=== PATIENT | female | born 1960 | race Two or more races ===

== ENCOUNTER 2024-02-02 07:32 | Emergency (ER) | payer OTHER ==
[~2024-02-02] VITALS: Ht 162.6 cm; Wt 76.6 kg
[2024-02-02 07:36] VITALS: TEMP 98.3
[2024-02-02] MEDS ORDERED: LABETALOL HCL 5 MG/ML 20 ML VIAL IVP ONE (07:37)
[2024-02-02 07:58] LABS: BASOPHILS % (AUTO) 0.7 % (0.0-2.0); EOSINOPHILS % (AUTO) 1.9 % (1.0-6.0); HEMATOCRIT 47.5 % (36-46); HEMOGLOBIN 16.1 g/dL (12.0-16.0); LYMPHOCYTES # (AUTO) 2.2 K/uL (1.0-4.8); LYMPHOCYTES % (AUTO) 25.5 % (22.0-44.0); MEAN CORPUSCULAR HEMOGLOBIN 30.8 pg (26.0-34.0); MEAN CORPUSCULAR VOLUME 91 fL (80-100); MONOCYTES # (AUTO) 0.7 K/uL (0.1-1.0); MONOCYTES % (AUTO) 8.7 % (2.0-9.0); NEUTROPHILS # (AUTO) 5.4 K/uL (1.8-7.7); NEUTROPHILS % (AUTO) 63.2 % (40.0-70.0); PLATELET COUNT (AUTO) 274 K/uL (150-450); RED BLOOD CELL COUNT(AUTO) 5.24 MIL/uL (4.00-5.20); RED CELL DISTRIBUTION WIDTH 13.7 % (11.5-14.5); WHITE BLOOD COUNT (AUTO) 8.5 K/uL (4.5-11.0)
[2024-02-02 08:15] LABS: ANION GAP 11 mmol/L (8-16); CALCIUM, TOTAL 9.5 mg/dL (8.8-10.5); CARBON DIOXIDE 28 mmol/L (22-29); CHLORIDE 101 mmol/L (98-107); CREATININE 0.61 mg/dL (0.60-1.30); GLOMERULAR FILTR. RATE CALC > 60 mL/min (>60); GLUCOSE,RANDOM 136 mg/dL (70-110); POTASSIUM 3.3 mmol/L (3.5-5.1); SODIUM SERUM 140 mmol/L (136-145); UREA NITROGEN, BLOOD 18 mg/dL (7-18)
[2024-02-02 08:20] LABS: ALANINE AMINOTRANSFERASE 24 U/L (12-78); ALBUMIN 3.3 g/dL (3.4-5.0); ALKALINE PHOSPHATASE 88 U/L (46-116); ASPARTATE AMINOTRANSFERASE 19 U/L (15-37); BILIRUBIN,TOTAL 0.5 mg/dL (0.1-1.0); CHOL/HDL RATIO 3.3 (3.9-5.7); CHOLESTEROL 230 mg/dL (131-200); HDL CHOLESTEROL 70 mg/dL (40-60); LDL CHOL (CALC.) 143 mg/dL (0-130); TOTAL PROTEIN, SERUM 7.6 g/dL (6.4-8.2); TRIGLYCERIDES 86 mg/dL (15-150)
[2024-02-02 08:26] LABS: TROPONIN I-HIGH SENSITIVITY 12 ng/L (<51)
[2024-02-02] MEDS: LABETALOL HCL 5 MG/ML 20 ML VIAL IVP ONE (08:34)
[2024-02-02] MEDS: DEXAMETHASONE SOD PHOS 4 MG/ML 5 ML VIAL IVP ONE (08:35)
[2024-02-02 09:12] LABS: COVID AG,FIA SOURCE NASAL SWAB
[2024-02-02] MEDS: LevETIRAcetam 1,000 MG in DEXTROSE 5%-WATER 100 ML IV ONE (09:17)
[2024-02-02 09:49] LABS: SARS-COV2 (COVID) ANTIGEN,FIA Negative (Negative)
[2024-02-02 11:47] VITALS: BP 146/86; PULSE 89; RESP 18
== END 2024-02-02 11:53 | disposition short-term general hospital (02) ==
LOC: EDUNIT# 07:32 → EMS 07:33 → EDBD 07:33 → EMS 11:53
DX: R41.82 Altered mental status, unspecified (principal); J32.1 Chronic frontal sinusitis; E11.9 Type 2 diabetes mellitus without complications; I10 Essential (primary) hypertension; Z20.822 Contact with and (suspected) exposure to COVID-19; Z98.890 Other specified postprocedural states
CPT/HCPCS: 99291; 70496; 96365; 71045; 96375; 87426; 80061; 80053; 84484; 85025; 85610; 85730; 86850; 86900; 86901; 70498; 82948; 93005; 70450; J0712; J1100; J3490; J7060; 36415-L1; 36415-TC